=== PATIENT | female | born 1985 | race Two or more races ===

== ENCOUNTER → 2017-07-01 | Outpatient (REF) | payer OTHER ==
[2017-07-01 17:15] LABS: ESTRADIOL 48.5 PG/ML; LUTEINIZING HORMONE 4.4 mIU/mL; PROGESTERONE 0.2 NG/ML
[2017-07-01 17:16] LABS: FOLLICLE STIMULATING HORMONE 6.2 mIU/mL
[2017-07-01 17:25] LABS: HCG, SERUM QUANTITATIVE < 1.0 MIU/ML
== END ==
LOC: M LAB REF 16:47
PROVIDERS: ATTEND Obstetrics & Gynecology Reproductive Endocrinology
DX: N97.9 Female infertility, unspecified (principal)

== ENCOUNTER → 2017-07-09 | Outpatient (REF) | payer OTHER ==
[2017-07-09 12:43] LABS: PROGESTERONE 0.5 NG/ML
[2017-07-09 12:44] LABS: ESTRADIOL 94.8 PG/ML
== END ==
LOC: M LABDRAW1 11:25
PROVIDERS: ATTEND Obstetrics & Gynecology Reproductive Endocrinology
DX: E28.2 Polycystic ovarian syndrome (principal)

== ENCOUNTER → 2017-07-11 | Outpatient (REF) | payer OTHER ==
[2017-07-11 13:21] LABS: PROLACTIN 12.2 NG/ML
[2017-07-11 13:35] LABS: FREE T4 1.31 NG/DL (0.76-1.46)
== END ==
LOC: M LABDRAW1 11:07
PROVIDERS: ATTEND Internal Medicine Endocrinology, Diabetes & Metabolism
DX: E22.1 Hyperprolactinemia (principal); E55.9 Vitamin D deficiency, unspecified; E03.9 Hypothyroidism, unspecified

== ENCOUNTER → 2017-07-11 | Outpatient (REF) | payer OTHER ==
[2017-07-11 14:43] LABS: ESTRADIOL 212.2 PG/ML
== END ==
LOC: M LABDRAW1 11:05
PROVIDERS: ATTEND Obstetrics & Gynecology Reproductive Endocrinology
DX: N97.9 Female infertility, unspecified (principal)

== ENCOUNTER → 2017-07-21 | Outpatient (REF) | payer OTHER ==
[2017-07-21 13:27] LABS: ESTRADIOL 61.5 PG/ML; LUTEINIZING HORMONE 1.9 mIU/mL; PROGESTERONE 16.2 NG/ML
== END ==
LOC: M LABDRAW1 12:43
PROVIDERS: ATTEND Obstetrics & Gynecology Reproductive Endocrinology
DX: E28.2 Polycystic ovarian syndrome (principal)

== ENCOUNTER → 2017-08-08 | Outpatient (REF) | payer OTHER ==
[2017-08-08 13:11] LABS: ESTRADIOL 102.4 PG/ML; LUTEINIZING HORMONE 79.3 mIU/mL
== END ==
LOC: M LABDRAW1 10:09
PROVIDERS: ATTEND Obstetrics & Gynecology Reproductive Endocrinology
DX: E28.2 Polycystic ovarian syndrome (principal)

== ENCOUNTER → 2017-08-19 | Outpatient (REF) | payer OTHER ==
[2017-08-19 16:22] LABS: ESTRADIOL 98.8 PG/ML; LUTEINIZING HORMONE 29.7 mIU/mL; PROGESTERONE 7.7 NG/ML
== END ==
LOC: M LABDRAW1 14:57
PROVIDERS: ATTEND Obstetrics & Gynecology Reproductive Endocrinology
DX: E28.2 Polycystic ovarian syndrome (principal)

== ENCOUNTER → 2017-08-26 | Outpatient (REF) | payer OTHER ==
[2017-08-26 17:26] LABS: HCG, SERUM QUANTITATIVE < 1.0 MIU/ML
[2017-08-26 17:27] LABS: ESTRADIOL 80.8 PG/ML; FOLLICLE STIMULATING HORMONE 7.5 mIU/mL; LUTEINIZING HORMONE 7.1 mIU/mL; PROGESTERONE 3.1 NG/ML
== END ==
LOC: M LABDRAW1 15:57
PROVIDERS: ATTEND Obstetrics & Gynecology Reproductive Endocrinology
DX: N97.9 Female infertility, unspecified (principal)

== ENCOUNTER → 2017-08-28 | Outpatient (REF) | payer OTHER ==
[2017-08-28 18:24] LABS: HCG, SERUM QUANTITATIVE < 1.0 MIU/ML
[2017-08-28 18:25] LABS: ESTRADIOL 50.2 PG/ML; FOLLICLE STIMULATING HORMONE 4.9 mIU/mL; LUTEINIZING HORMONE 4.4 mIU/mL; PROGESTERONE 6.6 NG/ML
== END ==
LOC: M LABDRAW1 15:15
PROVIDERS: ATTEND Obstetrics & Gynecology Reproductive Endocrinology
DX: N97.9 Female infertility, unspecified (principal)

== ENCOUNTER → 2017-09-03 | Outpatient (REF) | payer OTHER ==
[2017-09-03 18:09] LABS: PROGESTERONE 29.8 NG/ML
[2017-09-03 18:10] LABS: ESTRADIOL 27.6 PG/ML; LUTEINIZING HORMONE 2.8 mIU/mL
== END ==
LOC: M LABDRAW1 15:05
PROVIDERS: ATTEND Obstetrics & Gynecology Reproductive Endocrinology
DX: E28.2 Polycystic ovarian syndrome (principal)

== ENCOUNTER → 2017-09-12 | Outpatient (REF) | payer OTHER ==
[~2017-09-12] MED LIST: AZIT-12; LETR2.5T2; SUMA25TA3 PO; SYNT100T; VITA1CAP40
[2017-09-12 13:47] LABS: ESTRADIOL 121.7 PG/ML; LUTEINIZING HORMONE 2.3 mIU/mL; PROGESTERONE 0.6 NG/ML
[2017-09-12 13:48] LABS: FOLLICLE STIMULATING HORMONE 4.6 mIU/mL; HCG, SERUM QUANTITATIVE < 1.0 MIU/ML
== END ==
LOC: M LABDRAW1 11:51
PROVIDERS: ATTEND Obstetrics & Gynecology Reproductive Endocrinology
DX: N97.9 Female infertility, unspecified (principal)

== ENCOUNTER 2017-09-14 20:27 | Emergency (ER) | payer OTHER ==
[~2017-09-14] VITALS: Ht 157.5 cm; Wt 72.7 kg
[2017-09-14] MEDS ORDERED: SYNT100T (20:34)
[2017-09-14] MEDS ORDERED: LETR2.5T2 (20:34)
[2017-09-14] MEDS ORDERED: VITA1CAP40 (20:34)
[2017-09-14] MEDS ORDERED: SUMA25TA3 PO (20:34)
[2017-09-14] MEDS ORDERED: AZIT-12 (20:34)
[2017-09-14] MEDS ORDERED: METOCLOPRAMIDE INJ 10MG/2ML VIAL (J2765) IV ONE (21:15)
[2017-09-14] MEDS ORDERED: KETOROLAC 30 MG/ML VIAL (J1885) IV ONE (21:15)
[2017-09-14] MEDS ORDERED: NS 1,000 ML IV ONE (21:15)
[2017-09-14] MEDS ORDERED: diphenhydrAMINE INJ 50MG/ML VIAL (J1200) IV ONE (21:15)
[2017-09-14 22:39] VITALS: BP 101/56
== END 2017-09-14 22:46 | disposition home or self-care (01) ==
LOC: M ED 20:27
DX: G43.909 Migraine, unspecified, not intractable, without status migrainosus (principal); E03.9 Hypothyroidism, unspecified; Z79.899 Other long term (current) drug therapy; Z91.048 Other nonmedicinal substance allergy status; L23.0 Allergic contact dermatitis due to metals
CPT/HCPCS: 96374; 96375; 99284; J1200; J1885; J2765

== ENCOUNTER → 2017-09-16 | Outpatient (REF) | payer OTHER ==
[2017-09-16 15:59] LABS: ESTRADIOL 21.4 PG/ML; LUTEINIZING HORMONE 6.5 mIU/mL; PROGESTERONE 2.4 NG/ML
== END ==
LOC: M LAB REF 15:24 → M LABDRAW1 15:24
PROVIDERS: ATTEND Obstetrics & Gynecology Reproductive Endocrinology
DX: E28.2 Polycystic ovarian syndrome (principal)

== ENCOUNTER → 2017-10-28 | Outpatient (REF) | payer OTHER ==
[2017-10-28 16:35] LABS: LUTEINIZING HORMONE 3.7 mIU/mL
[2017-10-28 16:35] LABS: PROGESTERONE 0.6 NG/ML
[2017-10-28 16:36] LABS: ESTRADIOL 73.4 PG/ML
[2017-10-28 16:39] LABS: HCG, SERUM QUANTITATIVE < 1.0 MIU/ML; THYROID STIMULATING HORMONE 0.017 uIU/ML (0.358-3.740)
== END ==
LOC: M LABDRAW1 13:42
DX: N97.9 Female infertility, unspecified (principal)

== ENCOUNTER → 2017-11-13 | Outpatient (REF) | payer OTHER ==
[2017-11-13 12:52] LABS: TOTAL 25(OH) VITAMIN D 29.9 NG/ML (30.0-100.0)
[2017-11-13 13:45] LABS: THYROID STIMULATING HORMONE 0.019 uIU/ML (0.358-3.740)
[2017-11-13 13:45] LABS: FREE T4 1.41 NG/DL (0.76-1.46)
== END ==
LOC: M LABDRAW1 10:45
DX: E22.1 Hyperprolactinemia (principal); E03.9 Hypothyroidism, unspecified; E55.9 Vitamin D deficiency, unspecified
CPT/HCPCS: 84146

== ENCOUNTER → 2017-11-24 | Outpatient (REF) | payer OTHER ==
[2017-11-24 14:09] LABS: ESTRADIOL 148.5 PG/ML; LUTEINIZING HORMONE 5.3 mIU/mL
[2017-11-24 14:09] LABS: PROGESTERONE 0.5 NG/ML
== END ==
LOC: M LABDRAW1 13:29
DX: E28.2 Polycystic ovarian syndrome (principal)

== ENCOUNTER → 2017-12-03 | Outpatient (REF) | payer OTHER ==
[2017-12-03 13:24] LABS: PROGESTERONE 7.6 NG/ML
[2017-12-03 13:25] LABS: ESTRADIOL 81.3 PG/ML; LUTEINIZING HORMONE 0.6 mIU/mL
== END ==
LOC: M LABDRAW1 11:37
DX: E28.2 Polycystic ovarian syndrome (principal)
CPT/HCPCS: 83002

== ENCOUNTER → 2017-12-12 | Outpatient (REF) | payer OTHER ==
[2017-12-12 12:17] LABS: HCG, SERUM QUANTITATIVE < 1.0 MIU/ML; THYROID STIMULATING HORMONE 0.161 uIU/ML (0.358-3.740)
[2017-12-12 12:23] LABS: PROGESTERONE 0.4 NG/ML
[2017-12-12 12:24] LABS: FOLLICLE STIMULATING HORMONE 7.1 mIU/mL; LUTEINIZING HORMONE 3.7 mIU/mL
== END ==
LOC: M LABDRAW1 10:18
DX: N97.9 Female infertility, unspecified (principal)
CPT/HCPCS: 83001

== ENCOUNTER → 2017-12-17 | Outpatient (CLI) | payer OTHER ==
[2017-12-17 13:19] LABS: HCG, SERUM QUANTITATIVE < 1.0 MIU/ML
[2017-12-17 13:21] LABS: LUTEINIZING HORMONE 7.4 mIU/mL
[2017-12-17 13:21] LABS: PROGESTERONE 0.3 NG/ML
[2017-12-17 13:22] LABS: FOLLICLE STIMULATING HORMONE 7.4 mIU/mL
== END ==
LOC: M LAB 12:17
DX: E28.9 Ovarian dysfunction, unspecified (principal)

== ENCOUNTER → 2017-12-19 | Outpatient (CLI) | payer OTHER ==
[2017-12-19 09:27] LABS: PROGESTERONE 0.6 NG/ML
[2017-12-19 09:28] LABS: ESTRADIOL 162.4 PG/ML; LUTEINIZING HORMONE 5.9 mIU/mL
== END ==
LOC: M LAB 06:51
DX: E28.9 Ovarian dysfunction, unspecified (principal)

== ENCOUNTER → 2017-12-22 | Outpatient (CLI) | payer OTHER ==
[2017-12-22 11:22] LABS: PROGESTERONE 0.7 NG/ML
[2017-12-22 11:23] LABS: ESTRADIOL 231.4 PG/ML
== END ==
LOC: M LAB 06:53
DX: E28.9 Ovarian dysfunction, unspecified (principal)

== ENCOUNTER → 2018-01-14 | Outpatient (CLI) | payer OTHER ==
[2018-01-15 07:55] LABS: PROGESTERONE 0.5 NG/ML
[2018-01-15 07:56] LABS: ESTRADIOL 513.2 PG/ML; LUTEINIZING HORMONE 6.8 mIU/mL
== END ==
LOC: M LAB 07:17
DX: E28.9 Ovarian dysfunction, unspecified (principal); E03.9 Hypothyroidism, unspecified
CPT/HCPCS: 83002

== ENCOUNTER → 2018-01-14 | Outpatient (CLI) | payer OTHER ==
[2018-01-14 08:36] LABS: FREE T4 1.42 NG/DL (0.76-1.46); THYROID STIMULATING HORMONE 0.061 uIU/ML (0.358-3.740)
== END ==
LOC: M LAB 07:21
DX: E03.9 Hypothyroidism, unspecified (principal)

== ENCOUNTER → 2018-01-16 | Outpatient (CLI) | payer OTHER ==
[2018-01-16 09:43] LABS: PROGESTERONE 0.9 NG/ML
== END ==
LOC: M LAB 07:03
DX: E28.9 Ovarian dysfunction, unspecified (principal)

== ENCOUNTER → 2018-01-30 | Outpatient (CLI) | payer OTHER ==
[2018-01-30 16:48] LABS: HCG, SERUM QUANTITATIVE < 1.0 MIU/ML
[2018-01-30 16:56] LABS: PROGESTERONE 5.8 NG/ML
== END ==
LOC: M LAB 15:55
DX: Z32.00 Encounter for pregnancy test, result unknown (principal)
CPT/HCPCS: 84702

== ENCOUNTER → 2018-02-09 | Outpatient (CLI) | payer OTHER ==
[2018-02-09 13:59] LABS: PROGESTERONE 0.6 NG/ML
[2018-02-09 13:59] LABS: ESTRADIOL 996.9 PG/ML; LUTEINIZING HORMONE 6.8 mIU/mL
== END ==
LOC: M LAB 07:23
DX: E28.9 Ovarian dysfunction, unspecified (principal)
CPT/HCPCS: 83002

== ENCOUNTER → 2018-02-11 | Outpatient (CLI) | payer OTHER ==
[2018-02-11 08:56] LABS: PROGESTERONE 0.4 NG/ML
[2018-02-11 08:57] LABS: ESTRADIOL 1752.3 PG/ML; LUTEINIZING HORMONE 0.7 mIU/mL
== END ==
LOC: M LAB 06:58
DX: E28.9 Ovarian dysfunction, unspecified (principal)
CPT/HCPCS: 83002

== ENCOUNTER → 2018-02-27 | Outpatient (CLI) | payer OTHER ==
[2018-02-27 11:45] LABS: HCG, SERUM QUANTITATIVE 98 MIU/ML
[2018-02-27 12:02] LABS: PROGESTERONE 25.1 NG/ML
== END ==
LOC: M LAB 10:55
DX: E28.9 Ovarian dysfunction, unspecified (principal)
CPT/HCPCS: 84702

== ENCOUNTER → 2018-03-02 | Outpatient (CLI) | payer OTHER ==
[2018-03-02 12:05] LABS: PROGESTERONE 21.2 NG/ML
[2018-03-02 12:11] LABS: HCG, SERUM QUANTITATIVE 275 MIU/ML; THYROID STIMULATING HORMONE 0.755 uIU/ML (0.358-3.740)
== END ==
LOC: M LAB 10:40
DX: E28.9 Ovarian dysfunction, unspecified (principal)

== ENCOUNTER → 2018-05-15 | Outpatient (REF) | payer OTHER ==
[2018-05-15 16:33] LABS: FREE T4 0.96 NG/DL (0.76-1.46)
[2018-05-15 16:33] LABS: THYROID STIMULATING HORMONE 0.792 uIU/ML (0.358-3.740)
== END ==
LOC: M LABDRAW1 15:19
DX: E03.9 Hypothyroidism, unspecified (principal)

== ENCOUNTER → 2018-06-19 | Outpatient (REF) | payer OTHER ==
[2018-06-19 18:31] LABS: FREE T4 0.83 NG/DL (0.76-1.46); THYROID STIMULATING HORMONE 0.916 uIU/ML (0.358-3.740)
== END ==
LOC: M LAB REF 17:43
DX: E03.9 Hypothyroidism, unspecified (principal)

== ENCOUNTER → 2018-07-17 | Outpatient (CLI) | payer OTHER ==
[2018-07-17 17:39] LABS: THYROID STIMULATING HORMONE 0.355 uIU/ML (0.358-3.740)
[2018-07-17 17:39] LABS: FREE T4 1.07 NG/DL (0.76-1.46)
== END ==
LOC: M LAB 16:09
DX: E03.9 Hypothyroidism, unspecified (principal)
CPT/HCPCS: 84443

== ENCOUNTER → 2018-08-17 | Outpatient (REF) | payer OTHER ==
[2018-08-17 14:16] LABS: FREE T4 0.96 NG/DL (0.76-1.46); THYROID STIMULATING HORMONE 0.526 uIU/ML (0.358-3.740)
== END ==
LOC: M LAB REF 13:28
DX: E03.9 Hypothyroidism, unspecified (principal)

== ENCOUNTER 2018-10-27 19:52 | Inpatient (IN) | payer OTHER ==
[~2018-10-27] VITALS: Ht 157.5 cm; Wt 88.0 kg
[~2018-10-27 19:52] MED LIST changes: -SYNT100T; +SYNT100T PO; -VITA1CAP40; +VITA50005
[2018-10-27] MEDS ORDERED: LACTATED RINGER'S 1000 ML IV STA (20:20)
--- NOTE | 2018-10-27 20:29 | HPEPDOC ---
Obstetrical History & Physical General Date of Admission Oct 27, 2018 at 20:20 History of Present Illness 32 yo at 38+4 weeks by IUI date and 5+3 week US in [facility] in [place] present ed to L&D reporting gush of clear fluid at 1830 followed by continuous leaking ever since. She also endorses regular, painful contractions. She denies any bleeding. She endorses movement. Chief Complaint: Contractions, term, LOF, term Information Provided By: Patient Age: 32 : 1 Term: 0 Pre-term: 0 Abortions: 0 Livin Care Care: Good Care Dating Final EDC: Nov 06, 2018 Final EDC for Daily Update: Nov 06, 2018 Antepartum Course Diagnos(e)s Hypothyroidism Obesity --> BMI 35 endometriosis Past Medical History Past Obstetrical History : Past Obstetrical History: Primgravida [employer] O[employer]ATOR History: Endometriosis Past Medical History Medical History Hypothyroidism obesity endometriosis Surgical History: Diagnostic laparoscopy Family History Significant Family History: No pertinent family hx Social History Marital Status: Family situation: Spouse/partner home Psychosocial History: No pertinent psych hx * Smoker: non-smoker Alcohol: Denies Drugs: denies Imunizations Tdap status: current Influenza Status: current Allergies Coded Allergies: [place] (Verified Allergy, Intermediate, 09/14/17) Formaldehyde (Verified Allergy, Intermediate, 09/14/17) Nickel (Verified Allergy, Intermediate, 09/14/17) Medications Scheduled Ergocalciferol (Vitamin D) 50,000 Unit Cap, QWEEK Scheduled PRN Sumatriptan Succinate (Sumatriptan Succinate) 25 Mg Tab, 25 MG PO PRN PRN for HEADACHE Miscellaneous Medications Azithromycin (Azithromycin) 250 Mg Tab Letrozole (Letrozole) 2.5 Mg Tab Levothyroxine Sodium (Synthroid) 100 Mcg Tab Physical Examination Physical Examination GENERAL: Alert and oriented times three. ABDOMEN: Gravid and non-tender to touch. FETUS: Is vertex (VTX) by sterile vaginal examination (SVE), EXTREMITIES: No edema. Laboratory Data Urine Culture: No Growth Pertinent Laboratoy Data Blood Type: B+ RBC Antibody Screen: Negative HIV: Negative Hepatitis B: Negative Hepatitis C: Unknown Rapid Plasma Reagin: Nonreactive Rubella: Immune Varicella: Immune Chlamydia/Gonorrhea: Negative Group B Streptococcus: Negative Quad Screen Test: Negative Cystic Fibrosis: Negative Glucose Tolerance Test: 75 Anatomy Ultrasound Placenta Location: Anterior Normal Anatomy: Yes Placenta Previa: No Steroid Therapy Steroid Therapy: No Vaginal Examination Dilation: 2cm Effacement: 80% Station: -3 Cervical Consistency: Soft Cervical Position: Posterior Presentation: Cephalic presentation Position: Vertex (occiput) Assessment Heart Rate (FHR): 130 Variability: Moderate Accelerations: Positive Decelerations: None Tocometer Contractions: Yes Frequency: regular Duration: greater than 60 seconds Strength: palpated as moderate Assessment/Plan Assessment 32 yo at 38+4 weeks presented with SROM, clear fluid at 1830, and regular painful contractions. is uncomplicated. Plan Admit for expectant management. Will augment as clinically indicated. Customs Officer and consent. Diet: clears. Group B Streptococcus (GBS) negative. Labs and intravenous (IV) per unit protocol. IV analgesia until active labor and then epidural as desired. Anticipate normal spontaneous delivery (). C-S as appropriate. Magdy Prado, DO Labor and Delivery Counseling Vaginal / Operative vaginal delivery consent / counseling Deliver your baby through the vagina with possible assistance of forceps or vacuum device if needed for maternal or indications. Forceps and vacuum are devices that can assist with vaginal delivery when normal pushing efforts cannot achieve delivery on their own or when delivery is needed in an emergency for baby's well-being. Medications may be required to induce or augment (help) your labor in order to achieve a vaginal delivery. An episiotomy may be required to help your baby to delivery vaginally. You may also require repair of any lacerations or tears of your vagina or vulva that are caused by delivery. In some cases, emergencies can occur that require an emergency section delivery so quickly that there may not be enough time to stop and complete consent forms for section. Understand that if this occurs, your providers will discuss the need for a section with you before they proceed with surgery. section is the delivery of your baby through an incision in your abdomen. In some situations, section may be safer to mom and baby than continuing labor and is only performed when clinically indicated. Risks of vaginal delivery include but are not limited to: Bleeding, infection, injury to the vagina, pelvic structures, injury to baby, damage to the uterus, reactions to anesthesia, uterine rupture, risk of hysterectomy for life threatening bleeding, or . Medications used to induce or augment labor may increase your risk for infection, uterine tachysystole, uterine rupture, heart rate abnormalities, need for emergency delivery or possible hysterectomy, and hemorrhage. Additional risks for use of forceps and vacuum include: increased risk of perineal and vaginal lacerations, risk of urinary or bowel incontinence, increased risk of injury to baby with bruising, scratches, hematomas on the head, or intracranial bleeding. Ms. Betancourt verbalizes understanding of these risks and elects to proceed. She also consents to a blood transfusion should it become necessary. All questions answered. DO GUILLERMO Matos CHRISTOPHER J. DO Oct 27, 2018 20:29
[2018-10-27] MEDS ORDERED: BUTORPHANOL 2 MG/ML INJ (J0595) IV ONE (20:30)
[2018-10-27 21:02] LABS: BASO % 0.2 % (0.0-1.0); EOS % 0.3 % (0.0-3.0); LYMPH # 2.5 10^3/uL (1.5-4.5); LYMPH % 21.1 % (24.0-44.0); MEAN CORPUSCULAR HEMOGLOBIN 25.5 pg (27.0-33.0); MEAN CORPUSCULAR HGB CONC 32.4 g/dl (32.0-36.5); MEAN CORPUSCULAR VOLUME 78.9 fl (80.0-96.0); MONO # 0.5 10^3/uL (0.0-0.8); MONO % 4.4 % (0.0-5.0); NEUTROPHILS # 8.8 10^3/uL (1.8-7.7); NEUTROPHILS % 73.4 % (36.0-66.0); PLATELET COUNT, AUTOMATED 338 10^3/uL (150-450); RED BLOOD COUNT 4.31 10^6/uL (4.00-5.40)
[2018-10-27] MEDS ORDERED: OXYTOCIN DRIP 30 UNITS in APPROPRIATE DILUENT 1 EA IV SCH (23:30)
[2018-10-27] MEDS: LR 1,000 ML IV SCH (23:32)
[2018-10-28] VITALS (67 sets, daily range): BP systolic 106–169; BP diastolic 54–89
[2018-10-28] MEDS ORDERED: FENTANYL 2MCG/ML ROPIVACAINE 0.2% IN 0.9% NACL 100ML IVBAG As Ordered ONE (00:11)
--- NOTE | 2018-10-28 01:24 | IPNPDOC ---
Text Note Date of Service The patient was seen on 10/28/18. NOTE Patient with worsening pain. She received an epidural. Cervix: 4-5/90/-1 per RN exam. FHR Cat I. Contractions regular and patient progressing well on her own. Will continue with expectant management. Safe to proceed. DO Johan VS,Eduardo, I+O VS, Eduardo, I+O Laboratory Tests 10/27/18 20:41 Red Blood Count 4.31, Mean Corpuscular Volume 78.9 L, Mean Corpuscular Hemoglobin 25.5 L, Mean Corpuscular Hemoglobin Concent 32.4, Red Cell Distribution Width 14.7 H, Neutrophils (%) (Auto) 73.4 H, Lymphocytes (%) (Auto) 21.1 L, Monocytes (%) (Auto) 4.4, Eosinophils (%) (Auto) 0.3, Basophils (%) (Auto) 0.2, Neutrophils # (Auto) 8.8 H, Lymphocytes # (Auto) 2.5, Monocytes # (Auto) 0.5, Eosinophils # (Auto) 0.0, Basophils # (Auto) 0.0 Vital Signs Date Time Temp Pulse Resp B/P (MAP) Pulse Ox O2 Delivery O2 Flow Rate FiO2 10/27/18 20:55 18 I&O- Last 24 Hours up to 6 AM 10/28/18 06:00 Output Total 150 ml Balance -150 ml MAGGY LI DO Oct 28, 2018 01:23
[2018-10-28] MEDS ORDERED: OXYTOCIN 30 UNITS IN 0.9% NaCl 500ML IV BAG (J2590) As Ordered ONE (02:57)
[2018-10-28] MEDS ORDERED: TERBUTALINE SULFATE 1 MG/ML VIAL (J3105) SC ONE (05:30)
[2018-10-28] MEDS ORDERED: TERBUTALINE SULFATE 1 MG/ML VIAL (J3105) As Ordered ONE (05:31)
--- NOTE | 2018-10-28 05:36 | IPNPDOC ---
Text Note Date of Service The patient was seen on 10/28/18. NOTE Called to the room for recurrent variable decels. Cervix: 9/C/0. FSE had been placed by RN. Contractions regular, and some close together. IV fluid bolus, maternal position changes, and o2 applied. There is moderate FHR variability and positive accels. Cat II tracing overall. Lisbet has progressed rapidly on her own power. Given her closely spaced contractions, will administer dose of terbutaline and allow for rest. Will continue to monitor closely. DO Johan VS,Eduardo I+O VS, Eduardo, I+O Laboratory Tests 10/27/18 20:41 Red Blood Count 4.31, Mean Corpuscular Volume 78.9 L, Mean Corpuscular Hemoglob in 25.5 L, Mean Corpuscular Hemoglobin Concent 32.4, Red Cell Distribution Width 14.7 H, Neutrophils (%) (Auto) 73.4 H, Lymphocytes (%) (Auto) 21.1 L, Monocytes (%) (Auto) 4.4, Eosinophils (%) (Auto) 0.3, Basophils (%) (Auto) 0.2, Neutrophils # (Auto) 8.8 H, Lymphocytes # (Auto) 2.5, Monocytes # (Auto) 0.5, Eosinophils # (Auto) 0.0, Basophils # (Auto) 0.0 Vital Signs Date Time Temp Pulse Resp B/P (MAP) Pulse Ox O2 Delivery O2 Flow Rate FiO2 10/28/18 01:32 62 114/60 (78) 10/27/18 20:55 18 I&O- Last 24 Hours up to 6 AM 10/28/18 06:00 Output Total 150 ml Balance -150 ml MAGGY LI DO Oct 28, 2018 05:36
[2018-10-28] MEDS ORDERED: BICITRA 30ML SOLN UDC PO ONE (07:30)
--- NOTE | 2018-10-28 07:41 | IPNPDOC ---
Text Note Date of Service The patient was seen on 10/28/18. NOTE 28OCT2018 @ 0732- SBAR from Dr. Prado. Assumed care. 32 yo G1 @ 38+5, [id number]. Presented to L&D SROM clear fluid 27OCT2018, progressed to active labor. GBS negative. S: Resting in bed with epidural infusing. C/o severe heartburn. Comfortable. O: VS- WNL, afebrile FHR- 140, moderate variability, + accels, intermittent variable decelerations CTX- Q 3-4 min, lasting 60-120 seconds, palpated as strong, resting tone palpated as soft SVE- 9/100/-2 per [address] Prado SROM- fluid remains clear, ruptured x 13 hours GBS negative B positive Varicella Immune Rubells immune A: 32 yo G1 @ 38+5 in active labor, SROM x 13 hours, CAT II FHR tracing P: Continue to monitor and assess, reassess prn, bicitra ordered. Dr. Cornejo made aware. VS,Fishbone, I+O VS, Fishbone, I+O Laboratory Tests 10/27/18 20:41 Red Blood Count 4.31, Mean Corpuscular Volume 78.9 L, Mean Corpuscular Hemoglobin 25.5 L, Mean Corpuscular Hemoglobin Concent 32.4, Red Cell Distribution Width 14.7 H, Neutrophils (%) (Auto) 73.4 H, Lymphocytes (%) (Auto) 21.1 L, Monocytes (%) (Auto) 4.4, Eosinophils (%) (Auto) 0.3, Basophils (%) (Auto) 0.2, Neutrophils # (Auto) 8.8 H, Lymphocytes # (Auto) 2.5, Monocytes # (Auto) 0.5, Eosinophils # (Auto) 0.0, Basophils # (Auto) 0.0 Vital Signs Date Time Temp Pulse Resp B/P (MAP) Pulse Ox O2 Delivery O2 Flow Rate FiO2 10/28/18 06:35 99.3 82 122/60 (80) 10/27/18 20:55 18 I&O- Last 24 Hours up to 6 AM0 10/28/18 06:00 Output Total 150 ml Balance -150 ml MONICA ROSALES CNM Oct 28, 2018 07:41
[2018-10-28] MEDS ORDERED: LACTATED RINGER'S 1000 ML IV PRN (08:00)
[2018-10-28] MEDS ORDERED: ePHEDrine SULFATE 25 MG/5 ML(5MG/ML) SYRINGE IV PRN (08:00)
[2018-10-28] MEDS ORDERED: diphenhydrAMINE INJ 50MG/ML VIAL (J1200) IV PRN (08:00)
[2018-10-28] MEDS ORDERED: NALOXONE INJ 0.4 MG/1 ML VIAL (J2310) IV PRN (08:00)
[2018-10-28] MEDS ORDERED: EPIDURAL/PCA KEYS XX PRN (08:00)
[2018-10-28] MEDS ORDERED: ONDANSETRON 4MG/2ML VIAL (J2405) IV PRN ×2 (08:00→16:15)
[2018-10-28] MEDS ORDERED: FENTANYL/ROPIVACAINE/NACL BAG 100 ML EPIDURAL SCH (08:00)
[2018-10-28] MEDS ORDERED: REFRIGERATOR IV KEYS XX PRN (08:00)
[2018-10-28] MEDS ORDERED: EPIDURAL COMMENT XX SCH (08:00)
[2018-10-28] MEDS: LR 1,000 ML IV SCH ×2 (09:41→11:16)
--- NOTE | 2018-10-28 10:17 | IPNPDOC ---
Text Note Date of Service The patient was seen on 10/28/18. NOTE 28OCT2018 @ 1010 32 yo G1 @ 38+5, [id number]. Presented to L&D SROM clear fluid 27OCT2018, progressed to active labor. GBS negative. S: Resting in bed with epidural infusing in right side-lying with peanut ball. Feeling pressure. Spouse at bedside O: VS- WNL,T-100.2 FHR- (FSE)140, moderate variability, + accels, intermittent variable decelerations CTX- Q 3-4 min, lasting 60-120 seconds, palpated as strong, resting tone palpated as soft SVE- 8/90/-2, vtx/ant/medium SROM- fluid remains clear, ruptured x 15.5 hours IUPC placed A: 32 yo G1 @ 38+5 in active labor, SROM x 15.5 hours, CAT II FHR tracing P: Continue to monitor and assess, reassess prn, initiate pitocin per unit protocol, titrate pitocin based on MVUs. Dr. Cornejo made aware. VS,Christye, I+O VS, Christye, I+O Laboratory Tests 10/27/18 20:41 Red Blood Count 4.31, Mean Corpuscular Volume 78.9 L, Mean Corpuscular Hemogl obin 25.5 L, Mean Corpuscular Hemoglobin Concent 32.4, Red Cell Distribution Width 14.7 H, Neutrophils (%) (Auto) 73.4 H, Lymphocytes (%) (Auto) 21.1 L, Monocytes (%) (Auto) 4.4, Eosinophils (%) (Auto) 0.3, Basophils (%) (Auto) 0.2, Neutrophils # (Auto) 8.8 H, Lymphocytes # (Auto) 2.5, Monocytes # (Auto) 0.5, Eosinophils # (Auto) 0.0, Basophils # (Auto) 0.0 Vital Signs Date Time Temp Pulse Resp B/P (MAP) Pulse Ox O2 Delivery O2 Flow Rate FiO2 10/28/18 09:45 82 18 108/57 (74) 10/28/18 09:44 100.2 I&O- Last 24 Hours up to 6 AM 10/28/18 06:00 Output Total 150 ml Balance -150 ml MONICA ROSALES CNM Oct 28, 2018 10:17
--- NOTE | 2018-10-28 12:40 | IPNPDOC ---
Text Note Date of Service The patient was seen on 10/28/18. NOTE 28OCT2018 @ 1235 32 yo G1 @ 38+5, [id number]. Presented to L&D SROM clear fluid 27OCT2018, progressed to active labor. GBS negative. S: Resting in bed with epidural infusing in right side-lying with peanut ball. Feeling pressure. Spouse at bedside O: VS- WNL,T-99.6-101.3 FHR- (FSE)140, moderate variability, + accels, intermittent variable decelerations CTX- Q 2-3 min, lasting <90 seconds, TDIz-280-568 mmHg, resting MVUs 20mmHg SVE- deferred SROM- fluid remains clear, ruptured x 18 hours pitocin @ 6 mU/min(started at 11:30) A: 32 yo G1 @ 38+5 in active labor, SROM x 18 hours, CAT II FHR tracing P: Continue to monitor and assess, reassess prn, titrate pitocin based on MVUs. Dr. Cornejo is aware. VS,Eduardo, I+O VS, Eduardo, I+O Laboratory Tests 10/27/18 20:41 Red Blood Count 4.31, Mean Corpuscular Volume 78.9 L, Mean Corpuscular Hemoglobin 25.5 L, Mean Corpuscular Hemoglobin Concent 32.4, Red Cell Distribution Width 14.7 H, Neutrophils (%) (Auto) 73.4 H, Lymphocytes (%) (Auto) 21.1 L, Monocytes (%) (Auto) 4.4, Eosinophils (%) (Auto) 0.3, Basophils (%) (Auto) 0.2, Neutrophils # (Auto) 8.8 H, Lymphocytes # (Auto) 2.5, Monocytes # (Auto) 0.5, Eosinophils # (Auto) 0.0, Basophils # (Auto) 0.0 Vital Signs Date Time Temp Pulse Resp B/P (MAP) Pulse Ox O2 Delivery O2 Flow Rate FiO2 10/28/18 12:00 68 18 137/65 (89) 10/28/18 11:28 99.4 I&O- Last 24 Hours up to 6 AM 10/28/18 06:00 Output Total 150 ml Balance -150 ml MONICA ROSALES CNM Oct 28, 2018 12:40
[2018-10-28 15:16] LABS: CORD GAS ABE V -12.5; CORD GAS O2 SAT V 24.7 %; CORD GAS PCO2 V 52.1 mmHg; CORD GAS PH V 7.132 UNITS; CORD GAS PO2 V 17.9 mmHg; CORD GAS SBC V 13.5 MEQ/L; CORD GAS TCO2 V 18.6 MEQ/L
[2018-10-28 15:17] LABS: CORD GAS HCO3 A 18.4 MEQ/L; CORD GAS O2 SAT A 25.7 %; CORD GAS PCO2 A 71.5 mmHg; CORD GAS PH A 7.029 UNITS; CORD GAS SBC A 12.6 MEQ/L; CORD GAS TCO2 A 20.6 MEQ/L
--- NOTE | 2018-10-28 16:04 | DNPDOC ---
[facility] Delivery Note Delivery Note DATE OF DELIVERY: 18Oct2018 PREDELIVERY DIAGNOSIS: 38+5weeks' gestation and labor. POST DELIVERY DIAGNOSIS: Delivered. PROCEDURE: BORDER PATROL AGENT: Monica Rosales CNM ANESTHESIA: epidural ESTIMATED BLOOD LOSS: 300 mL. FINDINGS: 6 pound 4 ounce male infant, Score 3/8/9, nuchal cord times 1 DELIVERY SUMMARY: Patient is a 32 yo who was admitted to labor and delivery for PROM. Progressed to c/c/+2 with epidural infusing and c/o lots of pressure. Thick meconium noted. Pt pushed for approx [address] Cornejo to bedside multiple times to review FHR tracing. Decision to perform episiotomy(pt counseled and verbally consented). Dr. Cornejo performed episiotomy. Delivery by this provider via of male infant to a clean field; presented HIWOT with tight nuchal cord. Cord clamped x 2 and cut by this provider. Anterior shoulder(right) delivered with mild downward traction, posterior shoulder delivered with mild upward traction, corpus delivered spontaneously. Infant taken to warmer for resuscitation measures. Cord gases obtained. Approx 12 min later placenta delivered intact with 3 vessel cord. Pitocin bolus initiated with delivery of placenta. Fundal massage was applied and vaginal vault swept for clots; vagina ad perineum examined; 2MLL noted and repaired in usual fashion with 3-0 vicryl. Fundus firm @ U-1. EBL-300 ml. 3/8/9. Mother and bonding well and stable in delivery room, anticipate routine PP course. Item Value Date Time Cord Arterial Blood pH 7.029 UNITS 10/28/18 151 Cord Arterial Blood PCO2 71.5 mmHg 10/28/18 151 Cord Arterial Blood PO2 20.0 mmHg 10/28/18 151 Cord Arterial Blood HCO3 18.4 MEQ/L 10/28/18 151 Cord Arterial Blood Total CO2 20.6 MEQ/L 10/28/18 151 Cord Arterial Blood Base Excess -14.0 10/28/18 151 Cord Arterial Base Excess (Standard 12.6 MEQ/L 10/28/18 151 Cord Arterial Bld Oxygen Saturation 25.7 % 10/28/181510 Cord Venous Blood pH 7.132 UNITS 10/28/181510 Cord Venous Blood PCO2 52.1 mmHg 10/28/181510 Cord Venous Blood PO2 17.9 mmHg 10/28/181510 Cord Venous Blood HCO3 17.0 MEQ/L 10/28/181510 Cord Venous Blood Total CO2 18.6 MEQ/L 10/28/181510 Cord Venous Base Excess (Actual) -12.5 10/28/181510 Cord Venous Base Excess (Standard) 13.5 MEQ/L 10/28/181510 Cord Venous Blood Oxygen Saturation 24.7 % 10/28/18 151 MONICA ROSALES CNM Oct 28, 2018 16:04
[2018-10-28] MEDS ORDERED: OXYTOCIN DRIP 30 UNITS in APPROPRIATE DILUENT 1 EA IV SCH (16:06)
[2018-10-28] MEDS ORDERED: DIBUCAINE 1% OINTMENT 30GM TOP PRN (16:15)
[2018-10-28] MEDS ORDERED: PROMETHAZINE 25 MG TAB PO PRN (16:15)
[2018-10-28] MEDS ORDERED: DOCUSATE SODIUM 100 MG CAP PO PRN (16:15)
[2018-10-28] MEDS ORDERED: ACETAMINOPHEN 500 MG TAB PO PRN (16:15)
[2018-10-28] MEDS ORDERED: MOM 30ML SUSPENSION UDC PO PRN (16:15)
[2018-10-28] MEDS: IBUPROFEN 800 MG TAB PO PRN (18:15)
[2018-10-28] MEDS: FAMOTIDINE 20 MG TAB PO SCH (20:49)
[2018-10-28] MEDS ORDERED: raNITIdine SYRUP 150 MG/10 ML UDC PO SCH (21:00)
[2018-10-29] MEDS: IBUPROFEN 800 MG TAB PO PRN ×2 (06:20→18:00)
[2018-10-29 06:25] VITALS: BP 121/58
--- NOTE | 2018-10-29 08:13 | IPNPDOC ---
Text Note Date of Service The patient was seen on 10/29/18. NOTE PPD1 States feeling well, pain controlled with prescribed meds. Baby bonding and feeding well. No heavy VB. Lochia slowing. Ambulating and voiding well. Tolerating PO without issues. VSSAF NAD A&O RRR CTAB LE no C/C/E Ut at U-2, firm a/p: Doing well. Cont routine care. D/C likely tomorrow. Sessions VSEduardo, I+O VSEduardo I+O Vital Signs Date Time Temp Pulse Resp B/P (MAP) Pulse Ox O2 Delivery O2 Flow Rate FiO2 10/29/18 06:25 97.8 82 18 121/58 (79) 10/28/18 18:39 97 I&O- Last 24 Hours up to 6 AM 10/29/18 06:00 Intake Total 6158 ml Output Total 2475 ml Balance 3683 ml CINDY ROSALES MD Oct 29, 2018 08:13
[2018-10-29] MEDS: LEVOTHYROXINE 125MCG TABLET (0.125MG) PO SCH (09:13)
[2018-10-29] MEDS: FAMOTIDINE 20 MG TAB PO SCH ×2 (09:13→21:00)
[2018-10-29] MEDS: PRENATAL VITAMINS CHEWABLE TABLET PO SCH (09:13)
[2018-10-29 18:11] VITALS: BP 118/65
[2018-10-30 06:00] VITALS: BP 116/68
[2018-10-30] MEDS: LEVOTHYROXINE 125MCG TABLET (0.125MG) PO SCH (07:53)
--- NOTE | 2018-10-30 08:21 | DSES ---
DATE OF ADMISSION: 10/27/2018 DATE OF DISCHARGE: 10/30/2018 32-year-old, 1, now para 1, admitted with premature rupture of membranes at 38 and 4 weeks of gestation who had a spontaneous vaginal delivery after episiotomy and epidural of a live male , 6 pounds 4 ounces, Apgars of 3, 8 and 9 at one, five and ten minutes respectfully. Cord around the neck times one. Arterial pH 7.02 and base excess -14, venous pH 7.13 and base excess -12.5. On her second day, we discussed phlebitis, cystitis, mastitis, endometritis, cellulitis; diet, exercise and pain management; perineal, breast and wound care. On examination today, she is doing well, passing gas. She is having difficulty with bowel movements, worried because of her episiotomy abd constipation. The admitting hemoglobin was 11.0, hematocrit 34.0, and platelets were 338. On her vital signs today, her blood pressure was 116/68, respirations 18, pulse 66, and temperature 97.0. We discussed perineal and bowel care and bowel habit. She is take her Colace, her MiraLax and/or Metamucil as needed. The rest examination is unremarkable. Normocephalic, atraumatic. Neck with full range of motion. Pupils equal and reactive to light. Distal pulses symmetric. No evidence of deep vein thrombosis (DVT), pulmonary embolus (PE) or superficial phlebitis. Chest is clear bilaterally at bases. No wheezes or rhonchi. No costovertebral angle (CVA) tenderness. Abdomen soft. Uterus two below. Lochia is moderate. Perineum is a little swollen, but is healing well. Plans are for this lady to come for a 2 week checkup regarding her episiotomy site and 6 weeks for checkup. At that time, contraception will be discussed. The patient was discharged with medications. All questions were answered. edited: 11/02/2018 0720 tktori CHAUHAN
[2018-10-30] MEDS: PRENATAL VITAMINS CHEWABLE TABLET PO SCH (08:29)
[2018-10-30] MEDS: FAMOTIDINE 20 MG TAB PO SCH (08:29)
[2018-10-30] MEDS: IBUPROFEN 800 MG TAB PO PRN (08:30)
[2018-10-30] MEDS ORDERED: PRENTAB9 PO (10:56)
[2018-10-30] MEDS ORDERED: PEPC1TAB5 PO (10:56)
[2018-10-30] MEDS ORDERED: MAPA500T2 PO (10:58)
[2018-10-30] MEDS ORDERED: IBUP-1114 PO (10:59)
[2018-10-30] MEDS ORDERED: NUPE1OIN2 TOP (11:00)
[2018-10-30] MEDS ORDERED: COLA100C5 PO (11:00)
== END 2018-10-30 15:40 | disposition home or self-care (01) | DRG 807 ==
LOC: M LDO 19:52 → M LDI 20:20 → M OBS 10-28 18:23
PROVIDERS: ADMIT Obstetrics & Gynecology; ATTEND Midwife
PROC: 10E0XZZ Delivery of Products of Conception, External Approach (ICD-10-PCS; principal; 2018-10-27)
PROC: 0KQM0ZZ Repair Perineum Muscle, Open Approach (ICD-10-PCS; 2018-10-27)
PROC: 0W8NXZZ Division of Female Perineum, External Approach (ICD-10-PCS; 2018-10-27)
DX: O69.1XX0 Labor and delivery complicated by cord around neck, with compression, not applicable or unspecified (principal); Z37.0 Single live birth; O77.0 Labor and delivery complicated by meconium in amniotic fluid; O76 Abnormality in fetal heart rate and rhythm complicating labor and delivery; O70.1 Second degree perineal laceration during delivery; Z3A.38 38 weeks gestation of pregnancy

== ENCOUNTER → 2018-12-25 | Outpatient (REF) | payer OTHER ==
[~2018-12-25] MED LIST changes: +COLA100C5 PO; +IBUP-1114 PO; +MAPA500T2 PO; +NUPE1OIN2 TOP; +PEPC1TAB5 PO; +PRENTAB9 PO
[2018-12-25 16:07] LABS: FREE T4 0.76 NG/DL (0.76-1.46); THYROID STIMULATING HORMONE 1.06 uIU/ML (0.358-3.740)
== END ==
LOC: M LABDRAW1 12:57
PROVIDERS: ATTEND Nurse Practitioner Family
DX: E03.9 Hypothyroidism, unspecified (principal)